=== PATIENT | male | born 1985 | race Caucasian/White ===

== ENCOUNTER 2022-12-10 08:08 | Emergency (ER) | payer OTHER, SELFPAY ==
--- NOTE | ~2022-12-10 | CT_ITS ---
EXAMINATION: CT abdomen pelvis wo con DATE: 12/10/2022 08:49 INDICATION: Left flank pain. TECHNIQUE: Computed tomography (CT) of the abdomen and pelvis was performed without intravenous contr ast. Automated exposure control and iterative reconstruction technique were employed. The dose-length product was 520.25 mGy-cm. COMPARISON: None. FINDINGS: The visualized portions of the lung bases are clear without pneumonia or pleural effusion. There are size is normal. No pericardial effusion. There are cysts in the liver measuring up to 11 mm . The gallbladder, spleen, pancreas, adrenal glands, and right kidney are normal. There are two 2 mm stones in left kidney. There is mild left hydronephrosis and hydroureter. There is a 4 mm stone in di stal left ureter. The prostate is mildly enlarged. There are no dilated loops of bowel. The appendix is normal. There are no pathologically enlarged lymph nodes. There is no free intraperitoneal fluid. There is mild thoracic and lumbar spondylosis. IMPRESSION: 1. 4 mm stone in distal left ureter with mild left hydronephrosis and hydroureter. 2. Small nonobstructing left kidney stones. Reviewed, dictated and finalized at location A. IMPRESSION: 1. 4 mm stone in distal left ureter with mild left hydronephrosis and hydrouret er. 2. Small nonobstructing left kidney stones.
[2022-12-10 08:12] VITALS: BP 132/97; PULSE 81; RESP 18; TEMP 36.5; O2SAT 100
[2022-12-10 08:44] LABS: Basophils Absolute Auto 0.1 K/mm3 (0.0-0.1); Basophils Percent Auto 0.4 % (0.2-1.2); Eosinophils Absolute Auto 0.4 K/mm3 (0-0.3); Eosinophils Percent Auto 2.1 % (0-4.4); Hematocrit 38.2 % (42.0-52.0); Hemoglobin 12.8 g/dL (14.0-18.0); Immature Granulocyte Absolute 0.07 K/mm3 (0.00-0.031); Immature Granulocyte Percent A 0.4 % (0-0.5); Lymphocytes Absolute Auto 2.42 K/mm3 (0.9-3.2); Lymphocytes Percent Auto 12.8 % (18.3-44.2); Mean Corpuscular HGB Conc 33.5 g/dl (32-36); Mean Corpuscular Hemoglobin 30.8 pg (26-34); Mean Platelet Volume 8.9 fl (7.4-10.4); Monocytes Absolute Auto 0.8 K/mm3 (0.1-0.6); Monocytes Percent Auto 4.4 % (2.6-8.5); Neutrophils Absolute Auto 15.1 K/mm3 (1.3-6.7); Neutrophils Percent Auto 79.9 % (45.5-73.1); Platelet Count Result 362 k/mm3 (150-375); Red Blood Count 4.15 M/mm3 (4.6-6.20); Red Cell Distribution Width 13.4 % (11.5-14.5); White Blood Count 18.9 K/mm3 (4.5-10.0)
[2022-12-10 08:52] LABS: Alanine Aminotransferase 20 U/L (6-50); Albumin Level 4.5 g/dL (3.5-5.1); Alkaline Phosphatase 40 U/L (38-126); Anion Gap 5 mmol/L (8-16); Aspartate Amino Transferase 23 U/L (17-59); Bilirubin,Total 0.3 mg/dL (0.2-1.3); Blood Urea Nitrogen 17 mg/dL (9-20); Calcium 9.8 mg/dL (8.4-10.2); Carbon Dioxide 23 mmol/L (22-30); Chloride 107 mmol/L (98-107); Estimated CRCL calculation 68 ml/min; Estimated Glomerular Filt Rate > 60; Glucose 115 mg/dL (65-110); Potassium 3.9 mmol/L (3.4-5.0); Sodium 135 mmol/L (137-145)
[2022-12-10 09:02] LABS: Bacteria Urine None Seen /hpf; Calcium Oxalate Crystals Urine Present /hpf; Mucus Urine Present /lpf; Non Pathogenic Casts 0-2; RBC Urine >100 /hpf (0-2); Squamous Epithelial Cell Urine None seen /hpf (Few); WBC Urine 21-50 /hpf
[2022-12-10 09:03] LABS: Appearance Urine Turbid (Clear); Bilirubin Urine 1+ (Negative); Blood Urine 3+ (Negative); Color Urine Orange (Yellow); Glucose Urine UA Negative (Negative); Ketones Urine Negative (Negative); Leukocyte Esterase Ur 1+ LEU/UL (Negative); Nitrate Urine Negative (Negative); Protein Urine 2+ mg/dL (Negative); Specific Grav Ur 1.022 (1.001-1.035)
[2022-12-10 09:06] LABS: Add Urine Microscopic? YES
--- NOTE | 2022-12-10 09:11 | ED.ABDPAIN ---
HPI - Abdominal Pain General Chief Complaint: Abdominal Pain Stated Complaint: left flank pain Time Seen by Provider: 12/10/22 08:10 History of Present Illness HPI narrative: This is a 37-year-old male, with past history of hypertension and hyperlipidemia, who presents emergency department complaining of left flank pain. The patient states pain began approximately 4 days ago. It is described as dull and intermittently sharp, at maximum 10/10, presently 4/10 and radiates to the groin. He states this morning approximately 3 hours prior to arrival, he had a another episode of flank pain, again rated 10/10. Related Data Allergies Allergy/AdvReac Type Severity Reaction Status Date / Time No Known Allergies Allergy Unknown Verified 01/20/13 13:39 Review of Systems Review of Systems: CONSTITUTIONAL: Denies fever, chills, or sweats. CARDIOVASCULAR: Denies chest pain, palpitations, or edema. RESPIRATORY: Denies cough or dyspnea. GASTROINTESTINAL: Left flank and upper abdominal pain, nausea denies diarrhea. GENITOURINARY: Hematuria denies dysuria SKIN: Denies rash or itching. MUSCULOSKELETAL: Denies back pain, joint pain, or myalgia. NEUROLOGIC: Denies headache, numbness, dizziness, or weakness. PSYCHIATRIC: Denies anxiety or depression. PMFSH Past Medical History Medical History (Updated 12/10/22 @ 09:36 by Hamilton Simon MD) Hyperlipidemia Hypertension Surgical History Surgical History (Updated 12/10/22 @ 09:14 by Hamilton Simon MD) No significant past surgical history Social History Social History (Updated 12/10/22 @ 09:14 by Hamilton Simon MD) Smoking status: Current every day smoker Alcohol intake: current Substance use: current Substance use type: marijuana Exam Narrative: GENERAL: Well-developed, well-nourished, and in no acute distress. Appears uncomfortable HEAD: Normocephalic, atraumatic. EYES: PERRLA and EOMI. CHEST: Clear to auscultation. No respiratory distress. No wheezes rales or rhonchi HEART: Regular rate and rhythm. No murmur heard. Normal peripheral pulses. ABDOMEN: Soft, slightly tender to palpation in the left upper quadrant without rebound or guarding, nondistended, normal active bowel sounds. Mild left CVA tenderness to palpation, no right CVA tenderness EXTREMITIES: Normal range of motion. No edema. SKIN: Warm, dry, no rash. NEURO: No focal deficits. Alert and oriented x3. PSYCH: Normal mood and affect. Course Course Emergency Course: 09:24 - CT of the abdomen pelvis demonstrated a left-sided 4 mm stone. UA is not concerning for UTI. Chemistries demonstrate a creatinine of 1.3 and mild hyponatremia with sodium of 135. White blood cell count elevated at 18.9 with a hemoglobin of 12.8. The patient states his pain is controlled. Will discharge with pain medications, nausea medications and tamsulosin. Discussed return and emergency precautions including signs/symptoms of acute abdomen and intractable vomiting. The patient voiced understanding and is comfortable with the plan. All questions answered to his satisfaction. Vital Signs Vital signs: Vital Signs Temperature 97.7 F 12/10/22 08:12 Pulse Rate 81 12/10/22 08:12 Respiratory Rate 18 12/10/22 08:12 Blood Pressure 132/97 H 12/10/22 08:12 Pulse Oximetry 100 12/10/22 08:12 Oxygen Delivery Room Air 12/10/22 08:12 Temperature 97.7 F 12/10/22 08:12 Pulse Rate 81 12/10/22 08:12 Respiratory Rate 18 12/10/22 08:12 Blood Pressure 132/97 H 12/10/22 08:12 Pulse Oximetry 100 12/10/22 08:12 Oxygen Delivery Room Air 12/10/22 08:12 MDM - Abdominal Pain MDM Narrative Medical decision making narrative: Plan: Labs, imaging, pain control, antiemetics, reassess Differential Diagnosis Differential diagnosis: Likely acute appendicitis, calculus of kidney, diverticulitis, gastroenteritis, pancreatitis, small bowel obstruction and other (Pyelonephritis, UTI, other) Lab
== END 2022-12-10 09:54 | disposition home or self-care (01) ==
PROVIDERS: Emergency Provider Preventive Medicine Aerospace Medicine; PCP Family Medicine
DX: N13.2 Hydronephrosis with renal and ureteral calculous obstruction (principal); I10 Essential (primary) hypertension; E78.5 Hyperlipidemia, unspecified; F17.200 Nicotine dependence, unspecified, uncomplicated
CPT/HCPCS: 36415; 74176; 80053; 81001; 85025; 87086; 99284

== ENCOUNTER 2025-04-28 12:45 | Emergency (ER) | payer OTHER, SELFPAY ==
--- NOTE | 2025-04-28 13:16 | ED.SKABFB ---
HPI - Skin/Abscess/Foreign Bdy General Chief complaint: Skin/Abscess/Foreign Body Stated complaint: irritation on right thumb Time Seen by Provider: 04/28/25 13:30 Source: patient Mode of arrival: ambulatory Limitations: no limitations History of Present Illness HPI narrative: Nima is a 40-year-old male patient presenting to the clinic today with complaints of right thumb pain/swelling x2 days. He thinks he may have a ingrown fingernail infection-he bites his fingernails. Denies any fevers, chills, body aches. Related Data Home Medications ?Medication ?Instructions ?Recorded ?Confirmed ?Last Taken ?Type atorvastatin 80 mg tablet mg 04/28/25 Unknown History fenofibrate nanocrystallized 145 mg PO 04/28/25 Unknown History mg tablet Allergies Allergy/AdvReac Type Severity Reaction Status Date / Time No Known Allergies Allergy Unknown Verified 04/28/25 12:57 Review of Systems Review of Systems: Pertinent positives per HPI. Patient denies any fever, chills, rash, headache, visual changes, dizziness, cough, runny nose, sore throat, shortness of breath, chest pain, palpitations, nausea, vomiting, diarrhea, constipation, abdominal pain, or any urinary issues. PMFSH Past Medical History Medical History Hyperlipidemia Hypertension Surgical History Surgical History No significant past surgical history Social History Social History Smoking status: Current every day smoker Alcohol intake: current Substance use: current Substance use type: marijuana Comments At the time of my signature, I reviewed and agree with the nursing past medical, surgical, social, and family history. There is no relevant family history pertinent to the patient complaint. Exam Narrative: General: Well-developed, well nourished, in no apparent distress Head: Normocephalic, atraumatic. Cardio: Regular rate and rhythm, s1 and s2 normal, no murmur appreciated. Resp: Clear to auscultation bilaterally, no rhonchi, rales, wheezing or rubs. Musculoskeletal: No deformity, redness and swelling with small pocket of pus to the right medial thumb nail/cuticle, tender to palpation with localized redness, grossly normal range of motion, muscle strength strong and equal, peripheral pulse strong, no edema, no cyanosis, normal gait and station Course Course Level of Care: Express Care Visit Vital Signs Vital signs: Vital Signs Temperature 36.3 C L 04/28/25 13:19 Pulse Rate 73 04/28/25 13:19 Respiratory Rate 16 04/28/25 13:19 Blood Pressure 118/73 04/28/25 13:19 Pulse Oximetry 100 04/28/25 13:19 Oxygen Delivery Room Air 04/28/25 13:19 Temperature 36.3 C L 04/28/25 13:19 Pulse Rate 73 04/28/25 13:19 Respiratory Rate 16 04/28/25 13:19 Blood Pressure 118/73 04/28/25 13:19 Pulse Oximetry 100 04/28/25 13:19 Oxygen Delivery Room Air 04/28/25 13:19 Procedures Abscess I/D right thumb: Date of Incision: 04/28/25 Side (if applicable): right Technique: other (incised with 18 gauge bevel) Amount of fluid expressed (mL): 0.2 Irrigation: No Packing used?: none I&D Results: Blood Abcess I&D Additional Comments: Paronychia incision and drainage was performed. Verbal consent was obtained. Area was cleansed with alcohol swab and an 18 gauge needle was used to attempt to drain the paronychia with very scant amount of blood expressed. Culture was obtained and sent to the lab. Patient tolerated well. He was re-cleansed with alcohol and triple antibiotic ointment and a Band-Aid was applied [facility] MDM Narrative Medical decision making narrative: At the time of visit patient is resting comfortably on the exam table. Patient appears to be nontoxic. Complaints of right thumb pain/swelling x2 days. He thinks he may have a ingrown fingernail infection-he bites his fingernails. Denies any fevers, chills, body aches. On exam patient has redness and swelling with small pocket of pus to the right medial thumb nail/cuticle, tender to palpation with localized redness-offer to attempt to drain the paronychia patient gave verbal consent. Procedure: Paronychia incision and drainage was performed. Verbal consent was obtained. Area was cleansed with alcohol swab and an 18 gauge needle was used to attempt to drain the paronychia with very scant amount of blood expressed. Culture was obtained and sent to the lab. Patient tolerated well. He was re-cleansed with alcohol and triple antibiotic ointment and a Band-Aid was applied Plan: I suspect patient has a right thumb paronychia. Prescription for cephalexin and mupirocin cream was sent to the pharmacy. Wound culture was sent to the lab. Supportive measures were discussed with the patient and they voiced understanding discharge instructions and agrees to treatment plan. Return precautions reviewed Differential Diagnosis Differential Diagnosis: Differential diagnostic considerations for skin/abscess/foreign body issues include abscess of skin or subcutaneous tissue, viral exanthem, dermatophytosis, urticaria, herpes zoster, allergic reaction to drug, cellulitis, eczema, insect bites, impetigo, contact dermatitis, vasculitis. Discharge Plan Discharge Clinical Impression: Paronychia due to ingrown nail Patient Disposition: Home Condition: Stable Instructions: Antibiotic Form, Paronychia (ED) Additional Instructions: Paronychia was drained in the clinic today. Take cephalexin as prescribed May perform warm Epson salt soaks up to 4 times daily May take Tylenol/Motrin as needed for pain Apply mupirocin cream to the affected area twice daily as prescribed Follow-up with your PCP in 2-3 days Patient Language: Filipino Prescriptions: New cephalexin 500 mg capsule 500 mg PO Q8H 7 Days Qty: 21 0RF mupirocin [Centany] 2 % ointment 1 applic topical BID 7 Days Qty: 22 0RF No Action atorvastatin 80 mg tablet fenofibrate nanocrystallized 145 mg tablet PO Follow-up/Referrals: SHELLY,DESIREE ACUNA [Primary Care Provider] Time of Disposition: 13:39 Quality NIHSS Nursing Documentation ED NIHSS nursing documentation: reviewed/agree
[2025-04-28 13:19] VITALS: BP 118/73; PULSE 73; RESP 16; TEMP 36.3; O2SAT 100
== END 2025-04-28 13:42 | disposition home or self-care (01) ==
PROVIDERS: Emergency Provider Nurse Practitioner Family; PCP Nurse Practitioner Family
DX: L03.011 Cellulitis of right finger (principal); F17.200 Nicotine dependence, unspecified, uncomplicated; F12.90 Cannabis use, unspecified, uncomplicated; I10 Essential (primary) hypertension; E78.5 Hyperlipidemia, unspecified
CPT/HCPCS: 10060; 87070; 87147; 87186; 87205; 99213; G0463